=== PATIENT | male | born 1975 | race Caucasian/White ===

== ENCOUNTER 2016-04-30 13:40 | Emergency (ER) | payer MEDICAID, MEDICARE ==
[2016-04-30] MEDS ORDERED: LEVETIRACETAM 100 MG/1 ML 5ML VIAL IV ONE (14:25)
[2016-04-30] MEDS ORDERED: SODIUM CHLORIDE 0.9% 1,000 ML ONE (14:25)
[2016-04-30 14:38] LABS: ABSOLUTE NEUTROPHIL COUNT 4.8 K/mm3 (1.8-7.7); BASO % 0.4 % (0.2-1.0); EOS # 0.1 (0.0-0.5); EOS % 0.7 % (0.9-2.9); HEMATOCRIT 42.9 % (32.0-52.0); IMM NEUT% 0.4 % (0-1); LYMPH # 2.2 (1.0-4.8); LYMPH % 29.3 % (15-45); MEAN CORPUSCULAR HEMOGLOBIN 30.4 pg (27.0-31.0); MEAN PLATELET VOLUME 9.2 fl (7.4-10.4); MONO # 0.4 (0.0-0.8); MONO % 4.9 % (4-12); NEUT % 64.3 % (43-75); PLATELET COUNT 219 K/mm3 (130-400); RED CELL DISTRIBUTION WIDTH 12.4 % (11.5-14.5)
[2016-04-30] MEDS ORDERED: LEVETIRACETAM 1,000 MG in SODIUM CHLORIDE 0.9% 100 ML IV ONE (15:00)
--- NOTE | 2016-04-30 15:00 | CT ---
C-SPINE W/O CON History: Neck pain. Procedure: 1 mm axial images were obtained through the cervical spine from the base of the skull to T1 with stacked reconstructed 2 mm images photographed in the axial, coronal and sagittal planes. Comparison: Plain film examination dated 11/06/2009. 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 Partial fusion of the anterior aspect of the T1-T2, and T2-3 disc space levels is also observed. There is no discrete fracture or significant subluxation visualized. Soft tissue windows suggest annular bulging at C3-4 which appears to indent the anterior thecal sac, possibly contacting slightly compressing the anterior cervical cord. Osseous neural foraminal narrowing is suggested at the C4-5 level bilaterally no focal prevertebral soft tissue swelling is observed. The predens space is not widened. The odontoid process appears to be intact.. Impression: 1. 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 2. 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 Suggested annular bulging at C3-4 appears to flatten the anterior thecal sac and may contact or slightly compress the cervical cord at this level. 3. Bilateral osseous neural foraminal narrowing at C4-5.
--- NOTE | 2016-04-30 15:13 | RAD ---
History: Chest pain. Comparison: Chest CT dated 11/06/2009. Technique: 2 views Findings: The soft tissue and bony structures are unremarkable. The heart size is appropriate. No infiltrate, effusion or pneumothorax is observed. The hilar and mediastinal structures are normal. Impression: 1. No active intra-thoracic disease.
[2016-04-30 15:38] LABS: CALCIUM 9.5 mg/dL (8.6-10.3)
[2016-04-30 15:39] LABS: ALB/GLOB RATIO 1.4 (>1.0); ALBUMIN 4.3 gm/dL (3.5-5.7)
[2016-05-01 21:15] LABS: LAMOTRIGINE (LAMICTAL) 4 ug/mL (3-14)
[2016-05-04 02:14] LABS: KEPPRA (LEVETIRACETAM) 18 ug/mL (5-30)
== END 2016-04-30 16:33 | disposition home or self-care (01) ==
LOC: ED 13:40
DX: R45.4 Irritability and anger (principal); M54.2 Cervicalgia; G40.909 Epilepsy, unspecified, not intractable, without status epilepticus; R53.81 Other malaise; Z79.899 Other long term (current) drug therapy
CPT/HCPCS: 80299 ×2; 85025; 80053; 84484; 71020; 72125; 99284 ×2; 96365; 93005; J7030; J7050